=== PATIENT | female | born 1990 | race Caucasian/White ===

== ENCOUNTER 2017-01-18 18:36 | Emergency (ER) | payer OTHER ==
[~2017-01-18 18:36] MED LIST: CLIN-44 PO; FLUC150T PO; TRAM1TAB49 PO
--- NOTE | 2017-01-18 19:36 | PHYS DOC ---
Past Medical History Past Medical History: No Pertinent History Past Surgical History: No Surgical History Alcohol Use: None Drug Use: None Adult General Chief Complaint Chief Complaint: SKIN RASH/ABSCESS HPI HPI Patient is a 26 year old female presents emergency department stating that she has a rash on bilateral arms as well as sore throat and her chest area. She also states that she has a nodule in the middle of her throat just under her chin area. She states that this nodule is been there for approximately one year and has increased suddenly became painful in the last few days. Patient states she denies any shortness of air difficulty breathing she has no difficulty with swallowing. Patient also states that she's been having difficulty sleeping at night as she has been worried and stressed with the lump or nodule in her throat as well as the rash on her arms. She states that she has been keeping them as dry and cool as possible which seems to have helped. She has been using calamine lotion and Benadryl spray with no relief. Review of Systems Review of Systems Constitutional: Denies fever or chills [] Eyes: Denies change in visual acuity, redness, or eye pain [] HENT: Denies nasal congestion or sore throat [] Respiratory: Denies cough or shortness of breath [] Cardiovascular: No additional information not addressed in HPI [] GI: Denies abdominal pain, nausea, vomiting, bloody stools or diarrhea [] : Denies dysuria or hematuria [] Musculoskeletal: Denies back pain or joint pain [] Integument: rash denies skin lesions. Nodule to the throat just under the chin Neurologic: Denies headache, focal weakness or sensory changes [] Current Medications Current Medications Current Medications Medications (Trade) Dose Ordered Sig/Prashant Start Time Stop Time Status Last Admin Dose Admin Info (Do NOT chart on this entry -- for MONITORING) 1 each PRN DAILY PRN 01/18/17 20:15 01/20/17 20:14 Iohexol (Omnipaque 300 Mg/ml) 70 ml 1X ONCE 01/18/17 20:15 01/18/17 20:16 DC 01/18/17 20:30 70 ML Allergies Allergies Allergies Coded Allergies Type Severity Reaction Last Updated Verified Penicillins Allergy Intermediate 06/09/15 No amoxicillin Allergy Intermediate 06/09/15 No Physical Exam Physical Exam Constitutional: Well developed, well nourished, no acute distress, non-toxic appearance. [] HENT: Normocephalic, atraumatic, bilateral external ears normal, oropharynx moist, no oral exudates, nose normal. Bilateral tympanic membranes appear to be normal. Throat with no drainage or discharge noted. It was noted to have a nodule just under the chin area above the thyroid area. questionable salivary gland site. Does appear to be tender and movable. Eyes: PERRLA, EOMI, conjunctiva normal, no discharge. [] Neck: Normal range of motion, no tenderness, supple, no stridor. [] Cardiovascular:Heart rate regular rhythm, no murmur [] Lungs & Thorax: Bilateral breath sounds clear to auscultation [] Skin: Warm, dry, no erythema, no rash. [] Back: No tenderness Extremities: No tenderness, no cyanosis, no clubbing, ROM intact, no edema. [] Neurologic: Alert and oriented X 3, normal motor function, normal sensory function, no focal deficits noted. [] Psychologic: Affect normal, judgement normal, mood normal. [] Current Patient Data Vital Signs Vital Signs Date Time Temp Pulse Resp B/P Pulse Ox O2 Delivery O2 Flow Rate FiO2 01/18/17 21:05 82 18 120/68 97 Room Air 01/18/17 18:46 98.0 98.0 Lab Values Laboratory Tests Test 01/18/17 18:54 01/18/17 19:45 POC Urine HCG, Qualitative Hcg negative (Negative) White Blood Count 7.4x10^3/uL (4.0-11.0) Red Blood Count 4.73x10^6/uL (3.50-5.40) Hemoglobin 13.7g/dL (12.0-15.5) Hematocrit 41.1% (36.0-47.0) Mean Corpuscular Volume 87fL (79-100) Mean Corpuscular Hemoglobin 29pg (25-35) Mean Corpuscular Hemoglobin Concent 33g/dL (31-37) Red Cell Distribution Width 14.4% (11.5-14.5) Platelet Count 232x10^3/uL (140-400) Neutrophils (%) (Auto) 62% (31-73) Lymphocytes (%) (Auto) 29% (24-48) Monocytes (%) (Auto) 8% (0-9) Eosinophils (%) (Auto) 1% (0-3) Basophils (%) (Auto) 1% (0-3) Neutrophils # (Auto) 4.6x10^3uL (1.8-7.7) Lymphocytes # (Auto) 2.1x10^3/uL (1.0-4.8) Monocytes # (Auto) 0.6x10^3/uL (0.0-1.1) Eosinophils # (Auto) 0.1x10^3/uL (0.0-0.7) Basophils # (Auto) 0.1x10^3/uL (0.0-0.2) Sodium Level 138mmol/L (136-145) Potassium Level 4.3mmol/L (3.5-5.1) Chloride Level 104mmol/L (98-107) Carbon Dioxide Level 30mmol/L (21-32) Anion Gap 4 (6-14) L Blood Urea Nitrogen 13mg/dL (7-20) Creatinine 0.7mg/dL (0.6-1.0) Estimated GFR (Cockcroft-Gault) 99.6 BUN/Creatinine Ratio 19 (6-20) Glucose Level 77mg/dL (70-99) Calcium Level 9.4mg/dL (8.5-10.1) Total Bilirubin 0.3mg/dL (0.2-1.0) Aspartate Amino Transferase (AST) 20U/L (15-37) Alanine Aminotransferase (ALT) 23U/L (14-59) Alkaline Phosphatase 46U/L (46-116) Total Protein 8.2g/dL (6.4-8.2) Albumin 4.4g/dL (3.4-5.0) Albumin/Globulin Ratio 1.2 (1.0-1.7) Thyroid Stimulating Hormone (TSH) 1.546uIU/mL (0.358-3.74) Laboratory Tests 01/18/17 19:45 Laboratory Tests 01/18/17 19:45 EKG EKG [] Radiology/Procedures Radiology/Procedures [][facility] [address] [place], [place] [id number] IMAGING REPORT Signed PATIENT: CHENTE SANCHEZ ACCOUNT: [id number] : 1990 LOCATION: ER AGE: 26 SEX: F EXAM STATUS: REG ER ORD. PHYSICIAN: ADONIS RITTER APRN REASON: nodule in the throat PROCEDURE: CT SOFT TISSUE NECK W/CONTRAST Examination: CT soft tissue neck with IV contrast. HISTORY History of anterior thyroid nodule, rash on the neck COMPARISON None available. TECHNIQUE Axial CT images of the soft tissue neck were performed with IV contrast. Coronal sagittal reformats were performed. Exposure: One or more of the following dose reduction technique were utilized for this examination: 1. Automated exposure control. 2.Adjustment of MA and /or KV according to patient size. 3. Use of iterative reconstruction technique. Findings: The bilateral orbital globes appear intact. Bilateral parotid glands, road manager spaces, parapharyngeal spaces grossly appears unremarkable. The bilateral vallecula, piriform sinuses grossly appears unremarkable. The visualized vocal cords, subglottic structures grossly appears unremarkable. The visualized thyroid gland appears homogeneous. In the anterior midline of the neck, just anterior to the isthmus of thyroid, there is a large prominent appearing vascular structure identified, distally appears to join in the right subclavian vein on the right and proximally appears to divide and drains into the left cervical veins anterior to the anterior to the parotid glands ,likely a large enlarged collateral vessel. The apical lungs are clear. No evidence of enlarged cervical lymphadenopathy identified. No acute osseous findings. Impression: 1. Enlarged appearing vessel identified in the anterior neck likely a large collateral just anterior to the isthmus of the thyroid extending superiorly and inferiorly as described. Electronically signed by: Seth Park (Jan 18, 2017 20:45:54) DICTATED and SIGNED BY: SETH PARK MD DATE: 01/18/172044 CC: ADONIS RITTER APRN; NO PCP ~ Course & Med Decision Making Course & Med Decision Making Pertinent Labs and Imaging studies reviewed. (See chart for details) CT scan showed an enlarged appearing vessel identified in the anterior neck likely a large collateral just anterior to the isthmus of the thyroid extending superiorly inferiorly as described. Patient was reevaluated by Dr. Santillan. Patient will be treated for a salivary gland infection and will be placed on clindamycin. Patient will also be placed on a Medrol Dosepak for what appears to be opened right bites. Patient will be encouraged to take ibuprofen for pain and discomfort as well as inflammation. She'll be discharged home with recommendations to follow-up with ENT. Patient agrees with discharge instructions treatment regimens and follow-up recommendations. Signs and symptoms to return back to emergency department been provided. Patient had also complained that she was unable to sleep she will be provided with Ambien for the next 5 nights. [] Dragon Disclaimer Dragon Disclaimer This electronic medical record was generated, in whole or in part, using a voice recognition dictation system. Departure Departure Impression: Primary Impression: Contact dermatitis Additional Impression: Salivary gland enlargement Disposition: HOME, SELF-CARE Condition: STABLE Referrals: NO PCP (PCP) Patient Instructions: Contact Dermatitis, [id number], Salivary Gland Infection Additional Instructions: Activity as tolerated. Medications as prescribed. Ibuprofen may be taken for pain and discomfort as well as swelling. Follow-up with ENT within the next week. When you contact the ENT please let them know that you live in the [facility] area. Dr. Luna number is [phone] Return back to emergency prior signs symptoms of become worse. Scripts Zolpidem Tartrate (Ambien)5 Mg Tablet1 Tab PO QHS #5 TAB Prov:ADONIS RITTER APRN 01/18/17 Methylprednisolone (Medrol)4 Mg Tab.ds.pk1 Pkg PO UD #1 PKG Prov:ADONIS RITTER APRN 01/18/17 Clindamycin Hcl 150 Mg Capsule3 Cap PO TID 10 Days Prov:ADONIS RITTER APRN 01/18/17 Problem Qualifiers ADONIS RITTER APRN Jan 18, 2017 19:36
[2017-01-18 19:53] LABS: BASO # 0.1 x10^3/uL (0.0-0.2); BASO % 1 % (0-3); EOS % 1 % (0-3); HEMATOCRIT 41.1 % (36.0-47.0); HEMOGLOBIN 13.7 g/dL (12.0-15.5); LYMPH # 2.1 x10^3/uL (1.0-4.8); LYMPH % 29 % (24-48); MEAN CORPUSCULAR HEMOGLOBIN 29 pg (25-35); MEAN CORPUSCULAR HGB CONC 33 g/dL (31-37); MEAN CORPUSCULAR VOLUME 87 fL (79-100); MONO % 8 % (0-9); NEUT % 62 % (31-73); PLATELET COUNT 232 x10^3/uL (140-400); RED BLOOD COUNT 4.73 x10^6/uL (3.50-5.40); RED CELL DISTRIBUTION WIDTH 14.4 % (11.5-14.5); WHITE BLOOD COUNT 7.4 x10^3/uL (4.0-11.0)
[2017-01-18 20:06] LABS: CALCIUM 9.4 mg/dL (8.5-10.1); CREATININE 0.7 mg/dL (0.6-1.0); GFR 99.6; POTASSIUM 4.3 mmol/L (3.5-5.1)
[2017-01-18 20:13] LABS: ALBUMIN 4.4 g/dL (3.4-5.0); ALBUMIN/GLOBULIN RATIO 1.2 (1.0-1.7); TOTAL BILIRUBIN 0.3 mg/dL (0.2-1.0); TOTAL PROTEIN 8.2 g/dL (6.4-8.2)
[2017-01-18] MEDS ORDERED: IOHEXOL 300 MG/ML 75 ML VIAL IV ONE (20:15)
[2017-01-18] MEDS ORDERED: CONTRAST GIVEN MC PRN (20:15)
--- NOTE | 2017-01-18 20:47 | RAD ---
Examination: CT soft tissue neck with IV contrast. HISTORY History of anterior thyroid nodule, rash on the neck COMPARISON None available. TECHNIQUE Axial CT images of the soft tissue neck were performed with IV contrast. Coronal sagittal reformats were performed. Exposure: One or more of the following dose reduction technique were utilized for this examination: 1. Automated exposure control. 2.Adjustment of MA and /or KV according to patient size. 3. Use of iterative reconstruction technique. Findings: The bilateral orbital globes appear intact. Bilateral parotid glands, telephone interceptor operator spaces, parapharyngeal spaces grossly appears unremarkable. The bilateral vallecula, piriform sinuses grossly appears unremarkable. The visualized vocal cords, subglottic structures grossly appears unremarkable. The visualized thyroid gland appears homogeneous. In the anterior midline of the neck, just anterior to the isthmus of thyroid, there is a large prominent appearing vascular structure identified, distally appears to join in the right subclavian vein on the right and proximally appears to divide and drains into the left cervical veins anterior to the anterior to the parotid glands ,likely a large enlarged collateral vessel. The apical lungs are clear. No evidence of enlarged cervical lymphadenopathy identified. No acute osseous findings. Impression: 1. Enlarged appearing vessel identified in the anterior neck likely a large collateral just anterior to the isthmus of the thyroid extending superiorly and inferiorly as described. Electronically signed by: Seth Park (Jan 18, 2017 20:45:54)
[2017-01-18 21:05] VITALS: BP 120/68
[2017-01-18] MEDS ORDERED: ZOLP5TAB PO (21:12)
[2017-01-18] MEDS ORDERED: CLIN-44 PO (21:12)
[2017-01-18] MEDS ORDERED: METH4TAB2 PO (21:12)
== END 2017-01-18 21:17 | disposition home or self-care (01) ==
LOC: ER 18:36
DX: L25.9 Unspecified contact dermatitis, unspecified cause (principal); K11.8 Other diseases of salivary glands; J02.9 Acute pharyngitis, unspecified; Z88.0 Allergy status to penicillin; Z88.1 Allergy status to other antibiotic agents
CPT/HCPCS: 36415; 70491; 80053; 81025; 84443; 85027; 99285; Q9967

== ENCOUNTER 2017-03-21 14:38 | Emergency (ER) | payer OTHER ==
[~2017-03-21] VITALS: Ht 162.6 cm; Wt 67.2 kg
[~2017-03-21 14:38] MED LIST changes: -CLIN-44 PO; +CLIN150C14 PO; +METH4TAB2 PO; -TRAM1TAB49 PO; +TRAM1TAB56 PO; +ZOLP5TAB PO
[2017-03-21] MEDS ORDERED: PROCHLORPERAZINE 10 MG/2 ML VIAL. IV ONE (15:15)
[2017-03-21] MEDS ORDERED: KETOROLAC TROMETHAMINE 30 MG/ML INJ. IV ONE (15:15)
[2017-03-21] MEDS ORDERED: diphenhydrAMINE 50 MG/ML VIAL IVP ONE (15:15)
[2017-03-21] MEDS ORDERED: IV NORMAL SALINE 1000ML BAG 1,000 ML IV ONE (15:15)
--- NOTE | 2017-03-21 15:30 | PHYS DOC ---
Past Medical History Past Medical History: Migraines Past Surgical History: No Surgical History Alcohol Use: None Drug Use: None Adult General Chief Complaint Chief Complaint: NAUSEA/VOMITING/DIARRHA HPI HPI Patient is a 26 year old female who presents with migraine headache. Patient reports waking up this morning with aching/throbbing bitemporal and frontal headache with photophobia and nausea. Vomited once just prior to arrival. States this is typical of her usual migraine headache although she thought maybe she had a fever as well. Denies vision changes, neck stiffness, extremity numbness or weakness, abdominal pain, diarrhea. Reports dysuria last week, took Flagyl prescribed by urgent care. Took naproxen this morning without relief of symptoms. Does not have a PCP. Review of Systems Review of Systems Constitutional: Reports subjective fever Eyes: Denies change in visual acuity HENT: Denies nasal congestion or sore throat Respiratory: Denies cough or shortness of breath Cardiovascular: Denies chest pain or edema GI: Reports nausea and vomiting, denies abdominal pain, bloody stools or diarrhea : Denies dysuria or hematuria Musculoskeletal: Denies back pain or joint pain Integument: Denies rash or skin lesions Neurologic: Reports headache, denies focal weakness or sensory changes Current Medications Current Medications Current Medications Medications (Trade) Dose Ordered Sig/Prashant Start Time Stop Time Status Last Admin Dose Admin Diphenhydramine HCl (Benadryl) 25 mg 1X ONCE 03/21/17 15:15 03/21/17 15:16 DC 03/21/17 16:21 25 MG Ketorolac Tromethamine (Toradol) 30 mg 1X ONCE 03/21/17 15:15 03/21/17 15:16 DC 03/21/17 16:19 30 MG Prochlorperazine Edisylate (Compazine) 10 mg 1X ONCE 03/21/17 15:15 03/21/17 15:16 DC 03/21/17 16:17 10 MG Sodium Chloride 1,000 ml @ 1,000 mls/hr 1X ONCE 03/21/17 15:15 03/21/17 16:14 DC 03/21/17 16:21 1,000 MLS/HR Allergies Allergies Allergies Coded Allergies Type Severity Reaction Last Updated Verified Penicillins Allergy Intermediate 06/09/15 No amoxicillin Allergy Intermediate 06/09/15 No Physical Exam Physical Exam Constitutional: Well developed, well nourished, no acute distress, non-toxic appearance. HENT: Normocephalic, atraumatic, bilateral external ears normal, oropharynx moist, nose normal. Eyes: PERRLA, EOMI, conjunctiva normal, no discharge. Neck: supple, no stridor. No meningismus Cardiovascular: RRR, no murmurs, no edema. Lungs & Thorax: LCTAB, no wheezing, no respiratory distress. Abdomen: soft, nontender, nondistended. Skin: Warm, dry, no erythema, no rash. Back: No tenderness. Extremities: No tenderness, no edema. Neurologic: Alert and oriented X 3, cranial nerves II through XII grossly intact , symmetric strength and sensation upper and lower extremities, no focal deficits noted. Psychologic: Affect normal, judgement normal, mood normal. Current Patient Data Vital Signs Vital Signs Date Time Temp Pulse Resp B/P (MAP) Pulse Ox O2 Delivery O2 Flow Rate FiO2 03/21/17 16:45 80 18 108/71 (83) 97 Room Air 03/21/17 14:50 98.1 98.1 Lab Values Laboratory Tests Test 03/21/17 14:03 03/21/17 14:04 03/21/17 14:59 Urine Collection Type Unknown Urine Color Yellow Urine Clarity Cloudy Urine pH 7.0 Urine Specific Campbell 1.025 Urine Protein Negative mg/dL (NEG-TRACE) Urine Glucose (UA) Negative mg/dL (NEG) Urine Ketones (Stick) Negative mg/dL (NEG) Urine Blood Negative (NEG) Urine Nitrite Negative (NEG) Urine Bilirubin Negative (NEG) Urine Urobilinogen Dipstick 0.2 mg/dL (0.2 mg/dL) Urine Leukocyte Esterase Moderate (NEG) Urine RBC 0 /HPF (0-2) Urine WBC 5-10 /HPF (0-4) Urine Squamous Epithelial Cells Many /LPF Urine Amorphous Sediment Present /HPF Urine Bacteria Few /HPF (0-FEW) Urine Yeast Present /HPF POC Urine HCG, Qualitative Hcg negative (Negative) Sodium Level 141 mmol/L (136-145) Potassium Level 3.8 mmol/L (3.5-5.1) Chloride Level 104 mmol/L (98-107) Carbon Dioxide Level 29 mmol/L (21-32) Anion Gap 8 (6-14) Blood Urea Nitrogen 10 mg/dL (7-20) Creatinine 0.6 mg/dL (0.6-1.0) Estimated GFR (Cockcroft-Gault) 119.0 Glucose Level 94 mg/dL (70-99) Calcium Level 9.1 mg/dL (8.5-10.1) Laboratory Tests 03/21/17 14:59 EKG EKG [] Radiology/Procedures Radiology/Procedures [] Course & Med Decision Making Course & Med Decision Making Pertinent Labs and Imaging studies reviewed. (See chart for details) Patient presents with migraine headache. Give IV fluids, Compazine, Benadryl, Toradol. She felt better after treatment here. UA contaminated but indicative of UTI. Gave prescriptions for cipro & zofran. Recommend rest, PO hydration, follow up with Dr. Santos in primary care clinic in 1 week. Come back for severe headache, focal neuro deficit, severe abdominal pain or flank pain, uncontrolled vomiting, any otherwise worsening condition. Discharged home in stable & improved condition. [] Dragon Disclaimer Dragon Disclaimer This electronic medical record was generated, in whole or in part, using a voice recognition dictation system. Departure Departure Impression: Primary Impression: Migraine Additional Impression: Urinary tract infection Disposition: HOME, SELF-CARE Condition: IMPROVED Referrals: NO PCP (PCP) LOAN SANTOS MD Patient Instructions: Migraine Headache, [id number] Additional Instructions: You seen in the emergency department today for headache and urinary tract infection. Please take the prescribed antibiotic. Use Zofran for nausea. Drink small sips of clear liquids to stay hydrated. Follow-up with Dr. Santos in the primary care clinic within the next week. Return to the emergency department for worst headache of your life, sudden severe headache, severe abdominal pain or flank pain, uncontrolled vomiting, trouble moving arms/legs. Scripts Ondansetron (ZOFRAN ODT) 4 Mg Tab.rapdis 1 TAB SL Q8HRS, #10 TAB Prov: TERELL YANCEY MD 03/21/17 Ciprofloxacin Hcl (CIPRO) 250 Mg Tablet 1 TAB PO BID, #6 TAB Prov: TERELL YANCEY MD 03/21/17 Problem Qualifiers TERELL YANCEY MD Mar 21, 2017 15:30
[2017-03-21 15:37] LABS: BILIRUBIN,URINE NEGATIVE (NEG); GLUCOSE,URINE NEGATIVE (NEG); NITRITE,URINE NEGATIVE (NEG); PROTEIN,URINE NEGATIVE (NEG-TRACE); UROBILINOGEN,URINE 0.2 mg/dL (0.2 mg/dL)
[2017-03-21 15:46] LABS: BACTERIA,URINE FEW /HPF (0-FEW); RBC,URINE 0 /HPF (0-2); SQUAMOUS EPITHELIAL CELL,UR MANY /LPF
[2017-03-21 15:47] LABS: YEAST,URINE PRESENT /HPF
[2017-03-21 16:00] LABS: CALCIUM 9.1 mg/dL (8.5-10.1); CREATININE 0.6 mg/dL (0.6-1.0); POTASSIUM 3.8 mmol/L (3.5-5.1)
[2017-03-21 16:45] VITALS: BP 108/71
[2017-03-21] MEDS ORDERED: CIPR250T30 PO (16:56)
[2017-03-21] MEDS ORDERED: ONDA4TAB10 SL (16:56)
== END 2017-03-21 17:10 | disposition home or self-care (01) ==
LOC: ER 14:38
DX: G43.909 Migraine, unspecified, not intractable, without status migrainosus (principal); N39.0 Urinary tract infection, site not specified; Z88.0 Allergy status to penicillin; Z88.1 Allergy status to other antibiotic agents
CPT/HCPCS: 36415; 80048; 81001; 81025; 87086; 96361; 96374; 96375; 99284; J0780; J1200; J1885; J7030

== ENCOUNTER 2020-05-10 05:30 | Emergency (ER) | payer SELFPAY ==
[~2020-05-10] VITALS: Ht 162.6 cm; Wt 63.0 kg
[~2020-05-10 05:30] MED LIST changes: +CIPR250T30 PO; +ONDA4TAB10 SL
[2020-05-10 05:55] VITALS: BP 126/85
[2020-05-10] MEDS ORDERED: PERM60CR11 TP (06:49)
--- NOTE | 2020-05-10 06:50 | PHYS DOC ---
Past Medical History Past Medical History: Migraines Past Surgical History: No Surgical History Smoking Status: Current Every Day Smoker Alcohol Use: None Drug Use: None General Adult EDM: Chief Complaint: SKIN PROBLEM HPI: HPI: Patient is a 29-year-old otherwise healthy female who presents with a pruritic red rash that is progressed from her feet upper legs and now is on her arms. She states she has kids at home with a similar illness. She denies any fever chills or sweats. She states the most problematic part of this rash is that it itches so bad. She denies any other issues. [] Review of Systems: Review of Systems: Constitutional: Denies fever or chills. [] Eyes: Denies change in visual acuity. [] HENT: Denies nasal congestion or sore throat. [] Respiratory: Denies cough or shortness of breath. [] Cardiovascular: Denies chest pain or edema. [] GI: Denies abdominal pain, nausea, vomiting, bloody stools or diarrhea. [] : Denies dysuria. [] Musculoskeletal: Denies back pain or joint pain. [] Integument: Per HPI. [] Neurologic: Denies headache, focal weakness or sensory changes. [] Endocrine: Denies polyuria or polydipsia. [] Lymphatic: Denies swollen glands. [] Psychiatric: Denies depression or anxiety. [] Heart Score: Risk Factors: Risk Factors: DM, Current or recent (<one month) smoker, HTN, HLP, family history of CAD, obesity. Risk Scores: Score 0 - 3: 2.5% MACE over next 6 weeks - Discharge Home Score 4 - 6: 20.3% MACE over next 6 weeks - Admit for Clinical Observation Score 7 - 10: 72.7% MACE over next 6 weeks - Early Invasive Strategies Allergies: Allergies: Allergies Coded Allergies Type Severity Reaction Last Updated Verified Penicillins Allergy Intermediate 06/09/15 No amoxicillin Allergy Intermediate 06/09/15 No Physical Exam: PE: Constitutional: Well developed, well nourished, no acute distress, non-toxic appearance. [] HENT: Normocephalic, atraumatic, bilateral external ears normal, oropharynx mois t, no oral exudates, nose normal. [] Eyes: PERRLA, EOMI, conjunctiva normal, no discharge. [] Neck: Normal range of motion, no tenderness, supple, no stridor. [] Cardiovascular:Heart rate regular rhythm, no murmur [] Lungs & Thorax: Bilateral breath sounds clear to auscultation [] Abdomen: Bowel sounds normal, soft, no tenderness, no masses, no pulsatile masses. [] Skin: Red maculopapular linear rash feet lower extremities and arms consistent with scabies [] Back: No tenderness, no CVA tenderness. [] Extremities: No tenderness, no cyanosis, no clubbing, ROM intact, no edema. [] Neurologic: Alert and oriented X 3, normal motor function, normal sensory function, no focal deficits noted. [] Psychologic: Anxious [] Current Patient Data: Vital Signs: Vital Signs Date Time Temp Pulse Resp B/P (MAP) Pulse Ox O2 Delivery O2 Flow Rate FiO2 05/10/20 05:55 97.5 90 18 126/85 (99) 100 Room Air 97.5 EKG: EKG: [] Radiology/Procedures: Radiology/Procedures: [] Course & Med Decision Making: Course & Med Decision Making Pertinent Labs and Imaging studies reviewed. (See chart for details) [] Dragon Disclaimer: [employer] Disclaimer: This electronic medical record was generated, in whole or in part, using a voice recognition dictation system. Departure Departure Impression: Primary Impression: Scabies Disposition: 01 HOME, SELF-CARE Condition: STABLE Referrals: NO PCP (PCP) Patient Instructions: Scabies Additional Instructions: Return to the emergency department with any new or concerning symptoms Scripts Permethrin (ELIMITE) 60 Gm Cream..g. 60 GM TP 1X, #1 EACH 2 Refills Apply the cream from head to toe and allow it to stay on your body for 12 hours and then wash off Prov: SEBASTIAN GARCIA DO 05/10/20 Justicifation of Admission Dx: Justifications for Admission: Justification of Admission Dx: No SEBASTIAN GARCIA DO May 10, 2020 06:49
== END 2020-05-10 07:08 | disposition home or self-care (01) ==
LOC: ER 05:30
DX: B86 Scabies (principal); G43.909 Migraine, unspecified, not intractable, without status migrainosus; F17.200 Nicotine dependence, unspecified, uncomplicated; Z88.0 Allergy status to penicillin; Z88.1 Allergy status to other antibiotic agents
CPT/HCPCS: 99282